=== PATIENT | male | born 1955 | race Caucasian/White ===

== ENCOUNTER 2024-07-26 10:34 | Emergency (ER) | payer OTHER, BC, SELFPAY ==
[2024-07-26] VITALS (12 sets, daily range): BP systolic 140–154; BP diastolic 59–72; PULSE 61–67; RESP 16–18; TEMP 36.9; O2SAT 95–98; BMI 27.3
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
[2024-07-26 11:23] LABS: Creatinine, Point-of-Care* 0.7 mg/dl (0.6-1.3)
[2024-07-26 11:27] LABS: Basophils Absolute Auto 0.06 K/uL (0.00-0.30); Basophils Percent Auto 0.7 % (0.0-3.0); Eosinophils Absolute Auto 0.22 K/uL (0.00-0.50); Eosinophils Percent Auto 2.4 % (0.0-7.0); Hemoglobin* 13.8 gm/dL (13.5-17.5); Immature Granulocytes Abs Auto 0.05 K/uL (0.00-0.30); Immature Granulocytes Pct Auto 0.5 %; Lymphocytes Percent Auto 13.4 % (20-44); Mean Corpuscular HGB Conc 34 gm/dL (32-36); Mean Corpuscular Hemoglobin 30 pg (26-34); Mean Corpuscular Volume 89 fL (80-100); Monocytes Percent Auto 6.7 % (0.0-11.0); Neutrophils Percent Auto 76.3 % (42.0-72.0); Platelet Count* 203 K/uL (140-440); RDW Coefficient of Variation % 12.8 % (11.5-15.5); White Blood Count* 9.15 K/uL (4.50-11.00)
[2024-07-26 11:32] LABS: Slide Review Reflex No
[2024-07-26 11:52] LABS: Albumin* 4.7 g/dL (3.3-5.0); Chloride* 101 mmol/L (96-114); Sodium* 137 mmol/L (135-149)
[2024-07-26 11:53] LABS: Potassium* 3.9 mmol/L (3.6-5.1)
[2024-07-26 11:55] LABS: Alanine Aminotransferase* 22 U/L (4-50); Alkaline Phosphatase* 41 U/L (40-150); Anion Gap 12 mEq/L (7-15); Aspartate Amino Transferase* 26 U/L (12-35); Bilirubin Total* 0.7 mg/dL (0.1-1.5); Blood Urea Nitrogen* 12 mg/dL (7-30); Carbon Dioxide* 24 mmol/L (20-32); Creatinine* 0.6 mg/dL (0.5-1.5); Est. Creatinine Clearance* 64.26; Estimated Glomerular Filt Rate 104 ml/min; Glucose* 144 mg/dL (60-115); Total Protein* 7.2 g/dL (6.0-8.3)
[2024-07-26 11:56] LABS: Calcium* 9.1 mg/dL (8.4-10.6)
[2024-07-26 12:14] LABS: Troponin I* < 0.01 ng/mL (0.01-0.04)
== END 2024-07-26 13:13 | disposition home or self-care (01) ==
PROVIDERS: Emergency Provider Family Medicine
DX: S30.1XXA Contusion of abdominal wall, initial encounter (principal); M25.562 Pain in left knee; H11.32 Conjunctival hemorrhage, left eye; S00.33XA Contusion of nose, initial encounter; W22.10XA Striking against or struck by unspecified automobile airbag, initial encounter; V44.0XXA Car driver injured in collision with heavy transport vehicle or bus in nontraffic accident, initial encounter
CPT/HCPCS: 36415; 70450; 70486; 71260; 73560; 74177; 80053; 82565; 84484; 85025; 93005; 94761; 99285; 99291; G0390; Q9967